=== PATIENT | male | born 1950 | race Caucasian/White ===

== ENCOUNTER 2019-10-21 12:40 | Emergency (ER) | payer MEDICARE, BC ==
--- NOTE | 2019-10-21 13:19 | EDM.PDOC ---
ED HPI GENERAL MEDICAL PROBLEM - General Chief Complaint: Back Pain or Injury Stated Complaint: RIGHT SIDE PAIN Time Seen by Provider: 10/21/19 12:53 Source of Information: Reports: Patient History Limitations: Reports: No Limitations - History of Present Illness INITIAL COMMENTS - FREE TEXT/NARRATIVE: Patient is a 68-year-old male who presents with complaints of right lateral low back pain that started approximately 2 weeks ago. Patient was seen on Friday at the walk-in clinic at [facility] and started on prednisone, as well as Flexeril. He states that they gave him a shot of Toradol when he was there which did improve his symptoms as well. He is unsure if the Flexeril is helping , because he only takes it at night and it "knocks him out ". He states that today he was wiping his bottom and he experienced a sharp shooting pain in that area again. He verbalizes that he was told at the clinic that if this does not improve the symptoms, he would need to have his kidneys checked for a kidney stone. He denies any gross hematuria. He has no history of kidney stones. He states that it feels like the pain is "inside "rather than superficial. Right Lower Back Pain Score (Numeric/FACES): 9 - Related Data Allergies Allergy/AdvReac Type Severity Reaction Status Date / Time lisinopril Allergy Severe Cough Verified 10/21/19 12:56 Penicillins Allergy Severe Swelling Verified 10/21/19 12:56 Home Meds: Home Meds Cyclobenzaprine [Flexeril] 10 mg PO ASDIRECTED 10/21/19 [History] Losartan Potassium 100 mg PO DAILY 10/21/19 [History] Orphenadrine [Norflex] 100 mg PO BID PRN #10 tab 10/21/19 [Rx] atorvaSTATin [Lipitor] 80 mg PO DAILY 10/21/19 [History] predniSONE [Prednisone] 20 mg PO DAILY 10/21/19 [History] Past Medical History Cardiovascular History: Reports: High Cholesterol, Hypertension, [place], Pacemaker Respiratory History: Reports: Other (See Below) Other Respiratory History: [place] Fever Musculoskeletal History: Reports: Other (See Below) Other Musculoskeletal History: 2 back surgery Social & Family History - Tobacco Use Smoking Status *Q: Never Smoker - Caffeine Use Caffeine Use: Reports: Soda - Recreational Drug Use Recreational Drug Use: No ED ROS GENERAL - Review of Systems Review Of Systems: See Below Constitutional: Reports: No Symptoms. Denies: Fever, Chills, Decreased Appetite HEENT: Reports: No Symptoms Respiratory: Reports: No Symptoms. Denies: Shortness of Breath, Cough Cardiovascular: Reports: No Symptoms Endocrine: Reports: No Symptoms GI/Abdominal: Reports: No Symptoms. Denies: Abdominal Pain, Diarrhea, Nausea, Vomiting : Reports: Flank Pain. Denies: Dysuria, Frequency, Hematuria Musculoskeletal: Reports: No Symptoms Skin: Reports: No Symptoms Neurological: Reports: No Symptoms. Denies: Dizziness, Headache Psychiatric: Reports: No Symptoms Hematologic/Lymphatic: Reports: No Symptoms Immunologic: Reports: No Symptoms ED EXAM,LOWER BACK PAIN/INJURY - Physical Exam Exam: See Below Exam Limited By: No Limitations General Appearance: Alert, WD/WN, No Apparent Distress Respiratory/Chest: No Respiratory Distress, Lungs Clear, Normal Breath Sounds, No Accessory Muscle Use, Chest Non-Tender Cardiovascular: Normal Peripheral Pulses, Regular Rate, Rhythm, No Edema, No Gallop, No JVD, No Murmur, No Rub GI/Abdominal: Normal Bowel Sounds, Soft, Non-Tender, No Organomegaly, No Distention, No Abnormal Bruit, No Mass Back Exam: Normal Inspection, Full Range of Motion, Paraspinal Tenderness ( Right lower back). No: CVA Tenderness (L), CVA Tenderness (R), Vertebral Tenderness Neurological: Alert, Normal Mood/Affect, Normal Dorsiflexion, CN II-XII Intact, Normal Plantar Flexion, Normal Gait, Normal Reflexes, No Motor/Sensory Deficits , Oriented x 3 Psychiatric: Normal Affect, Normal Mood Skin Exam: Warm, Dry, Intact, Normal Color, No Rash Course - Vital Signs Last Recorded V/S: Last Vital Signs Temp 99.2 F 10/21/19 13:03 Pulse 94 10/21/19 13:03 Resp 20 10/21/19 13:03 BP 147/75 H 10/21/19 13:03 Pulse Ox 96 10/21/19 13:03 - Orders/Labs/Meds Labs: Laboratory Tests 10/21/19 10/21/19 10/21/19 Range/Units 14:00 14:00 14:58 WBC 9.15 H (4.23-9.07) K/mm3 RBC 5.56 (4.63-6.08) M/mm3 Hgb 16.5 (13.7-17.5) gm/dl Hct 49.1 (40.1-51.0) % MCV 88.3 (79.0-92.2) fl MCH 29.7 (25.7-32.2) pg MCHC 33.6 (32.2-35.5) g/dl RDW Std Deviation 45.1 H (35.1-43.9) fL Plt Count 136 L (163-337) K/mm3 MPV 11.7 (9.4-12.3) fl Neut % (Auto) 55.4 (34.0-67.9) % Lymph % (Auto) 34.1 (21.8-53.1) % [place] % (Auto) 8.9 (5.3-12.2) % Eos % (Auto) 0.8 (0.8-7.0) Baso % (Auto) 0.7 (0.1-1.2) % Neut # (Auto) 5.08 (1.78-5.38) K/mm3 Lymph # (Auto) 3.12 (1.32-3.57) K/mm3 [place] # (Auto) 0.81 (0.30-0.82) K/mm3 Eos # (Auto) 0.07 (0.04-0.54) K/mm3 Baso # (Auto) 0.06 (0.01-0.08) K/mm3 Sodium 144 (136-145) mEq/L Potassium 3.6 (3.5-5.1) mEq/L Chloride 108 H (98-107) mEq/L Carbon Dioxide 26 (21-32) mEq/L Anion Gap 13.6 (5-15) BUN 18 (7-18) mg/dL Creatinine 0.8 (0.7-1.3) mg/dL Est Cr Clr Drug Dosing 78.64 mL/min Estimated GFR (MDRD) > 60 (>60) mL/min BUN/Creatinine Ratio 22.5 H (14-18) Glucose 90 (80-115) mg/dL Calcium 8.3 L (8.5-10.1) mg/dL Total Bilirubin 0.5 (0.2-1.0) mg/dL AST 14 L (15-37) U/L ALT 45 (16-63) U/L Alkaline Phosphatase 65 (46-116) U/L C-Reactive Protein <0.2 (<1.0) mg/dL Total Protein 6.6 (6.4-8.2) g/dl Albumin 3.6 (3.4-5.0) g/dl Globulin 3.0 gm/dL Albumin/Globulin Ratio 1.2 (1-2) Urine Color Yellow (Yellow) Urine Appearance Clear (Clear) Urine pH 6.0 (5.0-8.0) Ur Specific [place] > or = 1.030 (1.005-1.030) Urine Protein Negative (Negative) Urine Glucose (UA) Negative (Negative) Urine Ketones Trace H (Negative) Urine Occult Blood Negative (Negative) Urine Nitrite Negative (Negative) Urine Bilirubin Negative (Negative) Urine Urobilinogen 0.2 (0.2-1.0) Ur Leukocyte Esterase Negative (Negative) Urine RBC 0-5 (0-5) /hpf Urine WBC 0-5 (0-5) /hpf Ur Squamous Epith Cells 0-5 (0-5) /hpf Urine Bacteria Few (FEW) /hpf Urine Mucus Few (FEW) /hpf - Re-Assessments/Exams Free Text/Narrative Re-Assessment/Exam: Patient has been taking prednisone and Flexeril and was having some gradual improvement up until this morning. She is concerned that this may be related to his kidney as opposed to musculoskeletal. We will complete lab work including a CBC, CMP, urinalysis. Ordered a CT of the abdomen pelvis to rule out kidney stone. 10/21/19 1555 Hematology was grossly unremarkable. Urinalysis was negative for any signs of infection or hematuria. CT of the abdomen pelvis showed no kidney stones, however did show an incidental finding of 2 soft tissue masses next to the cardiac apex outside the pericardium. Radiologist recommendation is for a follow-up CT in 6 months to confirm stability. Since he is hesitant to take Flexeril during the day as he does not want to be sedated at work, I will switch him to Norflex and recommend that he complete his course of prednisone as it is likely that his pain is musculoskeletal in nature. discussed these findings with the patient and recommended that he call to schedule follow-up appointment with his primary care provider for next week. He is in agreement with this plan. Discharge instructions as documented. Departure - Departure Time of Disposition: 15:57 Disposition: Home, Self-Care 01 Condition: Good Clinical Impression: Back pain Qualifiers: Back pain location: low back pain Chronicity: acute Back pain laterality: right Sciatica presence: without sciatica Qualified Code(s): M54.5 - Low back pain - Discharge Information *PRESCRIPTION DRUG MONITORING PROGRAM REVIEWED*: No *COPY OF PRESCRIPTION DRUG MONITORING REPORT IN PATIENT MARIN: No Prescriptions: Orphenadrine [Norflex] 100 mg PO BID PRN #10 tab PRN Reason: Muscle Spasm Instructions: Acute Back Pain, Adult Referrals: Karen Mccabe MD [Primary Care Provider] - Dustin Washington MD [Ordering Only Provider] - Forms: ED Department Discharge Additional Instructions: You were seen in the emergency department today for 2-week history of right sided back pain. Your work-up included blood work, urinalysis, and a CT scan of your abdomen pelvis. These were found to be normal and showed no cause for your right-sided back pain. As we discussed, the likely cause of the pain on your right lower back is a muscle spasms. We have prescribed a muscle relaxer, Norflex, to be used every 12 hours for muscle spasms. This is a less sedating than Flexeril. Do not use Flexeril while you are taking this medication. Recommend that you complete your course of prednisone. You may also apply heat to the area intermittently for comfort. On the CT scan, there was an incidental finding on your CT scan of 2 small soft tissue masses next to your heart outside the pericardium. The radiologist recommends a repeat CT scan at 6 months to ensure that these are not growing in size. Recommend that you call tomorrow morning to schedule follow-up appointment with your primary care provider to discuss your ongoing low back pain, as well as the incidental findings of the soft tissue masses on your CT scan. If you should experience any new or worsening symptoms of concern, please not hesitate to return to the emergency department. Sepsis Event Note - Evaluation Sepsis Screening Result: No Definite Risk - Focused Exam Vital Signs: Vital Signs Temp Pulse Resp BP Pulse Ox 10/21/19 13:03 99.2 F 94 20 147/75 H 96 Date Exam was Performed: 10/21/19 Time Exam was Performed: 19:12
--- NOTE | 2019-10-21 13:45 | CT ---
CT abdomen and pelvis Technique: Multiple axial sections were obtained from above the dome of the diaphragm inferiorly through the pubic symphysis. Intravenous and oral contrast not utilized. Study has been performed as a ureteral stone protocol. Findings: Cyst is noted within the left kidney measuring approximately 2.1 cm. 2 nonobstructing calculi are noted within the left kidney. Right kidney appears without abnormal calcifications. No ureteral dilatation or ureteral stone is seen. Visualized lung bases shows nothing acute. Noncontrast appearance of the liver shows a cyst within the left lobe measuring 1.2 cm. No additional abnormality is appreciated within the liver. Gallbladder contains no calcified gallstones. Spleen size is normal. Heart is enlarged. Soft tissue densities are noted off the left cardiac apex outside the pericardium. 1 soft tissue abnormality measures approximately 2.4 cm and 2nd abnormality measures 3.1 cm. Uncertain if these represent focal areas of scarring, enlarged lymph nodes or other abnormality. Adrenal glands show no nodule. Pancreas is within normal limits. Aorta shows no aneurysm. Atherosclerotic calcification noted within the aorta and within the iliac vessels. No retroperitoneal adenopathy is seen. No mesenteric abnormalities are seen. No pelvic mass or adenopathy is seen. No free fluid or inflammatory change is appreciated. Appendix is seen which is normal in size. Bone window settings were reviewed which show scattered degenerative change within the spine. No acute osseous finding is appreciated. Impression: 1. No ureteral dilatation or ureteral stone is seen. 2. 2 soft tissue masses next to the cardiac apex outside the pericardium. Recommend follow-up chest CT study in 6 months to confirm stability. This can be performed without IV contrast. This study would occur in April,. 3. Other findings as noted above which are believed to be incidental. Diagnostic code #3 This report was dictated in MDT
== END 2019-10-21 16:18 | disposition home or self-care (01) ==
LOC: JD.ED 12:40
DX: M54.5 Low back pain (principal); E78.00 Pure hypercholesterolemia, unspecified; I10 Essential (primary) hypertension; I25.2 Old myocardial infarction; Z88.8 Allergy status to other drugs, medicaments and biological substances; Z88.0 Allergy status to penicillin; Z79.899 Other long term (current) drug therapy
CPT/HCPCS: 36415; 74176; 74176-26; 80053; 81001; 85025; 86140; 99283; 99284-25